=== PATIENT | female | born 1960 | race Caucasian/White ===

== ENCOUNTER 2022-01-08 06:51 | Day surgery (SDC) | payer OTHER ==
[2022-01-08] MEDS ORDERED: fentaNYL 100 MCG/2 ML SDV ONE (07:23)
[2022-01-08] MEDS ORDERED: Midazolam 1 MG/ML 2 ML SDV ONE (07:23)
[2022-01-08] MEDS ORDERED: Propofol 200 MG/20 ML SDV ONE (07:23)
[2022-01-08] MEDS ORDERED: Sodium Chloride 0.9% 1,000 ML IV SCH (07:45)
== END 2022-01-08 10:15 | disposition home or self-care (01) ==
LOC: JP.SDS 06:51
PROVIDERS: ATTEND Surgery
DX: Z12.11 Encounter for screening for malignant neoplasm of colon (principal); E78.5 Hyperlipidemia, unspecified; R73.03 Prediabetes; Z79.899 Other long term (current) drug therapy; Z91.09 Other allergy status, other than to drugs and biological substances
CPT/HCPCS: 45378; J2250; J2704; J3010; J7030

== ENCOUNTER 2022-11-24 10:10 | Inpatient (IN) | payer OTHER ==
[2022-11-24 06:55] LABS: HEMATOCRIT 43.9 % (34.3-46.0); HEMOGLOBIN 15.1 g/dL (11.2-15.5); MEAN CORPUSCULAR HEMOGLOBIN 29.8 pg (31.6-35.5); MEAN CORPUSCULAR HGB CONC 34.4 g/dL (31.6-35.5); MEAN CORPUSCULAR VOLUME 86.6 fL (81.4-99.0); RED BLOOD CELL COUNT 5.07 M/uL (3.77-5.24); WHITE BLOOD CELL COUNT,WBC 12.5 K/uL (3.2-11.0)
[2022-11-24] MEDS: Nozin Nasal Sanitizer NASBOTH SCH ×2 (07:08→21:04)
[2022-11-24 07:16] LABS: A/G RATIO 1.4 (1.2-2.2); ALANINE AMINOTRANSFERASE,ALT 31 U/L (12-78); ALBUMIN 4.4 g/dL (3.4-5.0); ALKALINE PHOSPHATASE 71 U/L (46-116); ASPARTATE AMNIOTRANSFERASE,AST 25 U/L (15-37); BILIRUBIN TOTAL 3.4 mg/dL (0.2-1.0); BLOOD UREA NITROGEN,BUN 15 mg/dL (7-18); CALCIUM 10.3 mg/dL (8.5-10.1); CARBON DIOXIDE,CO2 27 mmol/L (21-32); CHLORIDE,CL 101 mmol/L (100-108); CREATININE 1.2 mg/dL (0.6-1.0); EST CRCL DRUG DOSING (CG) 37.46 mL/min; ESTIMATED GFR 51 mL/min (>60); GLUCOSE RANDOM 110 mg/dL (74-106); POTASSIUM,K 3.9 mmol/L (3.6-5.2); PROTEIN TOTAL,TP 7.5 g/dL (6.4-8.2); SODIUM,NA 138 mmol/L (140-148)
[2022-11-24 07:17] LABS: ANION GAP 13.9 mmol/L (5.0-14.0)
[~2022-11-24 10:10] MED LIST: Bupivacaine 0.5% 30 ML SDV ONE; Lactated Ringers 1,000 ML IV SCH; Magnesium Hydroxide 400 MG/5 ML Susp 30 ML Cup PO PRN; Morphine 2 MG/ML SYRINGE IVPUSH PRN; Ondansetron 4 MG/2 ML SDV IVPUSH PRN; ceFAZolin 2 GM in Premix Bag 1 BAG IV ONE
[2022-11-24] MEDS ORDERED: METRONIDAZOLE 0.75% TOP PRN (10:14)
[2022-11-24] MEDS: Sodium Chloride 0.9% 1,000 ML IV SCH ×2 (10:59→19:10)
[2022-11-24] MEDS: Acetaminophen 325 MG Tab PO SCH ×2 (13:03→17:57)
[2022-11-24] MEDS: oxyCODONE 5 MG Tab PO PRN ×2 (13:51→17:56)
[2022-11-24] MEDS: Docusate Sodium 100 MG Cap PO PRN (13:52)
[2022-11-24] MEDS: ceFAZolin 2 GM in Premix Bag 1 BAG IV SCH (15:23)
[2022-11-24] MEDS ORDERED: Betamethasone Dipropionate 0.05% Crm 15 GM Tube TOP PRN (21:00)
[2022-11-24] MEDS ORDERED: Nozin Nasal Sanitizer NASBOTH SCH (21:00)
[2022-11-24] MEDS: Aspirin 325 MG Tab.EC PO SCH (21:04)
[2022-11-25] MEDS: ceFAZolin 2 GM in Premix Bag 1 BAG IV SCH ×2 (00:19→07:12)
[2022-11-25] MEDS: oxyCODONE 5 MG Tab PO PRN ×4 (00:19→18:22)
[2022-11-25] MEDS: Acetaminophen 325 MG Tab PO SCH ×4 (00:19→18:21)
[2022-11-25] MEDS: Sodium Chloride 0.9% 1,000 ML IV SCH ×2 (03:29→12:09)
[2022-11-25] MEDS: Ketorolac 30 MG/ML SDV IVPUSH PRN (07:58)
[2022-11-25] MEDS: Nozin Nasal Sanitizer NASBOTH SCH ×2 (08:02→21:59)
[2022-11-25] MEDS: Aspirin 325 MG Tab.EC PO SCH ×2 (08:02→21:59)
[2022-11-25] MEDS: Escitalopram 10 MG Tab PO SCH (08:02)
[2022-11-25] MEDS: Calcium Carbonate 500 MG Tab.Chew PO SCH (08:02)
[2022-11-25] MEDS: atorvaSTATin 20 MG Tab PO SCH (08:02)
[2022-11-25] MEDS ORDERED: Clobetasol 0.05% Crm 30 GM Tube TOP PRN (09:00)
[2022-11-25] MEDS: Docusate Sodium 100 MG Cap PO PRN (18:22)
[2022-11-26] MEDS: Acetaminophen 325 MG Tab PO SCH ×3 (00:31→13:19)
[2022-11-26] MEDS: oxyCODONE 5 MG Tab PO PRN ×3 (00:32→13:28)
[2022-11-26] MEDS: Aspirin 325 MG Tab.EC PO SCH (09:03)
[2022-11-26] MEDS: Calcium Carbonate 500 MG Tab.Chew PO SCH (09:03)
[2022-11-26] MEDS: Escitalopram 10 MG Tab PO SCH (09:03)
[2022-11-26] MEDS: Nozin Nasal Sanitizer NASBOTH SCH (09:03)
[2022-11-26] MEDS: atorvaSTATin 20 MG Tab PO SCH (09:03)
[2022-11-26] MEDS: Ketorolac 30 MG/ML SDV IVPUSH PRN (14:38)
== END 2022-11-26 15:30 | disposition home health service (06) | DRG 470 ==
LOC: JP.ICU 10:10 → JP.SDS 10:10 → JP.ICU 11-25 12:36 → JP.SDS 11-25 12:36
PROVIDERS: ADMIT Specialist; ATTEND Specialist
PROC: 0SRD069 Replacement of Left Knee Joint with Oxidized Zirconium on Polyethylene Synthetic Substitute, Cemented, Open Approach (ICD-10-PCS; principal; 2022-11-24)
DX: M17.12 Unilateral primary osteoarthritis, left knee (principal); E78.5 Hyperlipidemia, unspecified; G47.33 Obstructive sleep apnea (adult) (pediatric); Z79.899 Other long term (current) drug therapy; Z90.710 Acquired absence of both cervix and uterus
CPT/HCPCS: 36415; 73560-26-LT; 73560-LT; 80053; 85027; 97110-GP; 97116-GP; 97161-GP; 97165-GO; 97535-GP; A9270-GY; C1713; C1776; J0690; J1885; J2270; J3490; J7030; J7120

== ENCOUNTER 2022-11-28 22:34 | Emergency (ER) | payer OTHER ==
[2022-11-28 23:12] LABS: BASOPHILS ABSOLUTE AUTO 0.03 K/uL (0.00-0.10); BASOPHILS PERCENT AUTO 0.4 % (0.1-1.3); EOSINOPHILS PERCENT AUTO 2.6 % (0.0-5.4); HEMATOCRIT 30.1 % (34.3-46.0); HEMOGLOBIN 9.9 g/dL (11.2-15.5); IMMATURE GRAN ABSOLUTE AUTO 0.15 K/uL (0.00-0.23); LYMPHOCYTES ABSOLUTE AUTO 1.41 K/uL (0.8-3.3); LYMPHOCYTES PERCENT AUTO 18.4 % (11.4-47.7); MEAN CORPUSCULAR HEMOGLOBIN 29.7 pg (31.6-35.5); MEAN CORPUSCULAR HGB CONC 32.9 g/dL (31.6-35.5); MEAN CORPUSCULAR VOLUME 90.4 fL (81.4-99.0); MONOCYTES ABSOLUTE AUTO 0.83 K/uL (0.20-0.90); MONOCYTES PERCENT AUTO 10.8 % (3.3-12.6); NEUTROPHILS ABSOLUTE AUTO 5.06 K/uL (1.0-7.6); NEUTROPHILS PERCENT AUTO 65.8 % (40.0-78.1); PLATELET COUNT,PLT 331 K/uL (130-375); RED BLOOD CELL COUNT 3.33 M/uL (3.77-5.24); WHITE BLOOD CELL COUNT,WBC 7.7 K/uL (3.2-11.0)
[2022-11-28 23:25] LABS: CALCIUM 9.4 mg/dL (8.5-10.1); CREATININE 0.9 mg/dL (0.6-1.0); EST CRCL DRUG DOSING (CG) 49.95 mL/min; POTASSIUM,K 4.3 mmol/L (3.6-5.2)
[2022-11-28 23:27] LABS: ANION GAP 8.3 mmol/L (5.0-14.0)
[2022-11-28] MEDS ORDERED: Cephalexin 250 MG Cap PO ONE (23:37)
== END 2022-11-29 00:05 | disposition home or self-care (01) ==
LOC: JP.ED 22:34
DX: L03.116 Cellulitis of left lower limb (principal); D64.9 Anemia, unspecified; E78.00 Pure hypercholesterolemia, unspecified; E66.9 Obesity, unspecified; Z68.31 Body mass index [BMI] 31.0-31.9, adult; Z91.09 Other allergy status, other than to drugs and biological substances; Z79.899 Other long term (current) drug therapy
CPT/HCPCS: 36415; 80048; 85025; 99283; A9270

== ENCOUNTER 2023-09-19 19:59 | Emergency (ER) | payer MEDICARE, BC | END 2023-09-19 22:20 | disposition home or self-care (01) | LOC: JP.ED 19:59 | DX: M26.601 Right temporomandibular joint disorder, unspecified (principal); E78.00 Pure hypercholesterolemia, unspecified; Z91.09 Other allergy status, other than to drugs and biological substances; Z79.899 Other long term (current) drug therapy; Z90.710 Acquired absence of both cervix and uterus | CPT/HCPCS: 36415; 84484; 93005; 93010; 99283 ==